=== PATIENT | male | born 1990 | race Caucasian/White ===

== ENCOUNTER 2023-07-11 02:02 | Emergency (ER) | payer SELFPAY ==
[2023-07-11] VITALS (9 sets, daily range): BP systolic 97–132; BP diastolic 44–81; PULSE 71–98; RESP 12–22; TEMP 37; O2SAT 95–100; BMI 21.9
--- NOTE | 2023-07-11 02:08 | ECG_ITS ---
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 Measurements Intervals [place] Rate: 81 P: 38 NE: 111 QRS: 73 QRSD: 104 T: 73 QT: 380 QTc: 441 Interpretive Statements SINUS RHYTHM WITH SHORT NE INTERVAL POSSIBLE RIGHT VENTRICULAR CONDUCTION DELAY [RSR (QR) IN V1/V2] Compared to ECG 11/02/2017 15:37:32 Short NE interval now present T-wave abnormality no longer present Electronically Signed On 07-11-2023 9:27:52 CDT by Pieter Chen M.D. [id number]
--- NOTE | 2023-07-11 02:16 | XRR_ITS ---
PROCEDURE INFORMATION: Exam: XR Chest Exam date and time: 07/11/2023 2:17 AM Age: 33 years old Clinical indication: Chest pressure; Patient HX: C/O chest pain; Additional info: Cp TECHNIQUE: Imaging protocol: Radiologic exam of the chest. Views: 1 view. COMPARISON: CR XR chest 1V [id number] 09/18/2018 9:39 AM FINDINGS: Lungs: Unremarkable. No consolidation. Pleural spaces: Unremarkable. No pleural effusion. No pneumothorax. Heart/Mediastinum: Unremarkable. No cardiomegaly. Bones/joints: Degenerative/osteolytic changes of the distal right clavicle. XR/XR chest 1V portable [id number] IMPRESSION: 1. No acute cardiopulmonary findings. 2. Right distal clavicle osteolysis.
[2023-07-11 02:25] LABS: Basophils % 0.1 %; Eosinophils % 0.1 %; Hematocrit 43.9 % (37-53); Lymphocytes # 0.5 10^3/uL (0.8-4.8); Lymphocytes % 5.9 %; Mean Corpuscular HGB Conc 33.9 g/dL (30-55); Mean Corpuscular Volume 94.2 fl (82-101); Mean Platelet Volume 11.3 fL (7.4-10.4); Monocytes # 0.5 10^3/uL (0.2-0.9); Monocytes % 5.3 %; Neutrophils # 7.77 10^3/uL (1.8-7.7); Neutrophils % 88.4 %; Nucleated Red Blood Cells % 0 %; Platelet Count 255 10^3/cmm (157-399); Red Blood Count 4.66 10^6/uL (3.85-5.65); Red Cell Distribution Width 11.9 % (12.1-15.1)
[2023-07-11] MEDS: sodium chloride 0.9% 1,000 ML 999 ML IV (02:27)
[2023-07-11 02:39] LABS: Troponin(5th) Baseline 10 ng/L (0-15)
[2023-07-11 02:41] LABS: Anion Gap 13.6 (5-19); Blood Urea Nitrogen 13 mg/dL (6-20); Calcium 9.5 mg/dL (8.5-10.5); Carbon Dioxide 31 mmol/L (22-29); Chloride 101 mmol/L (98-107); Creatinine Clr Calc Pharmacy 109.4394; Glomerular Filtration Rate 98.4 mL/min (90-130); Glucose 93 mg/dL (65-115); Osmolality Calculated 292 mOsm/kg (285-295); Potassium 4.6 mmol/L (3.5-5.1); Sodium 141 mmol/L (136-145)
--- NOTE | 2023-07-11 04:20 | W.ED.OVERDOS ---
Documented by User: Grzegorz Scott DO 07/11/23 06:08 HPI - Overdose General: Chief Complaint: Overdose Stated Complaint: OD 4hrs ago narcan already lethargic chest pain Time Seen by Provider: 07/11/23 02:07 History of Present Illness: 33-year-old male brought in because of concerns for an overdose and he might stop breathing EMS was called to the patient approximately 4 hours prior to arrival where he received Narcan. At some point it is not clear that patient supposedly got CPR from the girlfriend. He comes in today just because he is concerned about stopping breathing. He also admits to methamphetamine and marijuana use. Review of Systems Const: Denies: fever(s) or chills Card: Reports: chest pain Resp: Denies: productive cough or non-productive cough GI: Denies: abdominal pain, nausea or vomiting Physical Exam Const: GENERAL APPEARANCE: disheveled and other (Obviously intoxicated, smells of marijuana); not in distress Resp: COMMON NORMALS: clear to auscultation bilaterally EFFORT & INSPECTION: Yes able to speak in complete sentences, No respiratory distress and No uses accessory muscles AUSCULTATION: clear to auscultation bilaterally Cardio: COMMON NORMALS: regular rate and regular rhythm RATE: regular rate RHYTHM: regular rhythm GI: COMMON NORMALS: Soft to palpation and non-tender PALPATION: Yes Soft to palpation Extremity: COMMON NORMALS: normal to inspection and full ROM Psych: APPEARANCE: Yes unkempt SPEECH: Yes slow Skin: OTHER: Multiple tattoos Course Vital Signs: Vital signs: Vital Signs Temperature 98.6 F 07/11/23 02:04 Pulse Rate 72 07/11/23 06:30 Respiratory Rate 12 07/11/23 06:30 Blood Pressure 105/56 07/11/23 06:30 Pulse Oximetry 98 07/11/23 06:00 Oxygen Delivery Me thod Room Air 07/11/23 06:00 MDM - Overdose Medical Decision Making pt resting and stable throughout stay, pt cared turned over at shift change with uds pending. Lab Data 07/11/23 02:16 07/11/23 02:16 Radiology Impressions Chest X-Ray 07/11/23 02:16 IMPRESSION: 1. No acute cardiopulmonary findings. 2. Right distal clavicle osteolysis. Laboratory Results WBC 8.80 10^3/uL (3.29-11.43) 07/11/23 02:16 RBC 4.66 10^6/uL (3.85-5.65) 07/11/23 02:16 Hgb 14.90 g/dL (11.27-16.99) 07/11/23 02:16 Hct 43.9 % (37-53) 07/11/23 02:16 MCV 94.2 fl (82-101) 07/11/23 02:16 MCH 32.0 pg (27-33) 07/11/23 02:16 MCHC 33.9 g/dL (30-55) 07/11/23 02:16 RDW 11.9 % (12.1-15.1) L 07/11/23 02:16 Plt Count 255 10^3/cmm (157-399) 07/11/23 02:16 MPV 11.3 fL (7.4-10.4) H 07/11/23 02:16 Neut % (Auto) 88.4 % 07/11/23 02:16 Lymph % (Auto) 5.9 % 07/11/23 02:16 [place] % (Auto) 5.3 % 07/11/23 02:16 Eos % (Auto) 0.1 % 07/11/23 02:16 Baso % (Auto) 0.1 % 07/11/23 02:16 Neut # (Auto) 7.77 10^3/uL (1.8-7.7) H 07/11/23 02:16 Lymph # (Auto) 0.5 10^3/uL (0.8-4.8) L 07/11/23 02:16 [place] # (Auto) 0.5 10^3/uL (0.2-0.9) 07/11/23 02:16 Eos # (Auto) 0.0 10^3/uL (0.0-0.8) 07/11/23 02:16 Baso # (Auto) 0.0 10^3/uL (0.0-0.1) 07/11/23 02:16 Nucleated RBC % (auto) 0 % 07/11/23 02:16 Nucleated RBCs # 0.0 /100WBC 07/11/23 02:16 Sodium 141 mmol/L (136-145) 07/11/23 02:16 Potassium 4.6 mmol/L (3.5-5.1) 07/11/23 02:16 Chloride 101 mmol/L (98-107) 07/11/23 02:16 Carbon Dioxide 31 mmol/L (22-29) H 07/11/23 02:16 Anion Gap 13.6 (5-19) 07/11/23 02:16 BUN 13 mg/dL (6-20) 07/11/23 02:16 Creatinine 0.9 mg/dL (0.7-1.2) 07/11/23 02:16 GFR Calculation 98.4 mL/min (90-130) 07/11/23 02:16 Glucose 93 mg/dL (65-115) 07/11/23 02:16 Calculated Osmolality 292 mOsm/kg (285-295) 07/11/23 02:16 Calcium 9.5 mg/dL (8.5-10.5) 07/11/23 02:16 Troponin T Baseline 10 ng/L (0-15) 07/11/23 02:16 No radiology studies performed this visit EKG Data EKG 1: I personally reviewed and interpreted this EKG as follows: EKG interpretation date: 07/11/23 EKG interpretation time: 02:09 Interpretation: Sinus rhythm, ventricular rate 81, GA 111, no acute ST changes or elevation noted. Discharge Plan Discharge Patient Disposition: Home Clinical Impression: Drug overdose, Polysubstance abuse Condition: Stable Prescriptions: New Narcan 4 mg/actuation spray,non-aerosol 4 mg intranasal Q2M PRN (Reason: opioid overdose) Qty: 2 0RF Rx Instructions: spray 1 dose into ONE nostril; alternate nostrils w each dose until help arrives Discharge Orders: Discharge ED (Routine); Ordered 07/11/23 Ordered By: Flex Rose Patient Instructions: Narcotic Safety (ED), Polysubstance Use Disorder (ED), Narcotic Use Disorder (ED), Opioid Safety, Pain Management Activity Restrictions/Additional Instructions: Thank you for choosing [facility] for your healthcare needs today. It is very important that you follow up as instructed or that you return to the Emergency Department should you have concerns or if your condition changes or worsens in any way. You were seen today after a overdose of recreational use of narcotics. Strongly recommend not using narcotics that have not been prescribed to you. Narcotics overdoses and out of hospital settings have frequently resulted in respiratory arrest and . You were given a prescription for Narcan nasal spray to use in the event of any subsequent narcotics overdoses. Strongly recommend that you follow-up with behavioral health clinic or at [facility] to help with substance abuse disorders. Sign Out Sign Out Data: Patient Sign Out occurred on 07/11/23 at 06:20. Patient's care was discussed, and care was transferred from Grzegorz Scott DO to Flex Rose DO. Coding Level of Care Code ED Keyboard Teacher for Chg Fwd Documented by User: Flex Rose DO 07/11/23 08:20 HPI - Overdose General: Chief Complaint: Overdose Stated Complaint: OD 4hrs ago narcan already lethargic chest pain Time Seen by Provider: 07/11/23 02:07 Course Vital Signs: Vital signs: Vital Signs Temperature 98.6 F 07/11/23 02:04 Pulse Rate 72 07/11/23 06:30 Respiratory Rate 12 07/11/23 06:30 Blood Pressure 105/56 07/11/23 06:30 Pulse Oximetry 98 07/11/23 06:00 Oxygen Delivery Me thod Room Air 07/11/23 06:00 MDM - Overdose Medical Decision Making pt resting and stable throughout stay, pt cared turned over at shift change with uds pending. Patient now awake and alert with no specific complaints is adamant about leaving. He refuses to provide a urine sample. He is able to repeat his history to me. Repeat exam chest clear heart regular. Chart reviewed. Patient's recollection of history matches what he had told Dr. Bennett and what Dr. Scott has on the chart. We had been monitoring him for a time for the medications to wear off. He denies any intentional overdose. His recreational use of medications. He had admitted to the use of narcotics marijuana and methamphetamine to Dr. Scott. Medical Records I reviewed the patient's medical records. Lab Data I reviewed the patient's lab results. 07/11/23 02:16 07/11/23 02:16 Radiology Impressions Chest X-Ray 07/11/23 02:16 IMPRESSION: 1. No acute cardiopulmonary findings. 2. Right distal clavicle osteolysis. Laboratory Results WBC 8.80 10^3/uL (3.29-11.43) 07/11/23 02:16 RBC 4.66 10^6/uL (3.85-5.65) 07/11/23 02:16 Hgb 14.90 g/dL (11.27-16.99) 07/11/23 02:16 Hct 43.9 % (37-53) 07/11/23 02:16 MCV 94.2 fl (82-101) 07/11/23 02:16 MCH 32.0 pg (27-33) 07/11/23 02:16 MCHC 33.9 g/dL (30-55) 07/11/23 02:16 RDW 11.9 % (12.1-15.1) L 07/11/23 02:16 Plt Count 255 10^3/cmm (157-399) 07/11/23 02:16 MPV 11.3 fL (7.4-10.4) H 07/11/23 02:16 Neut % (Auto) 88.4 % 07/11/23 02:16 Lymph % (Auto) 5.9 % 07/11/23 02:16 [place] % (Auto) 5.3 % 07/11/23 02:16 Eos % (Auto) 0.1 % 07/11/23 02:16 Baso % (Auto) 0.1 % 07/11/23 02:16 Neut # (Auto) 7.77 10^3/uL (1.8-7.7) H 07/11/23 02:16 Lymph # (Auto) 0.5 10^3/uL (0.8-4.8) L 07/11/23 02:16 [place] # (Auto) 0.5 10^3/uL (0.2-0.9) 07/11/23 02:16 Eos # (Auto) 0.0 10^3/uL (0.0-0.8) 07/11/23 02:16 Baso # (Auto) 0.0 10^3/uL (0.0-0.1) 07/11/23 02:16 Nucleated RBC % (auto) 0 % 07/11/23 02:16 Nucleated RBCs # 0.0 /100WBC 07/11/23 02:16 Sodium 141 mmol/L (136-145) 07/11/23 02:16 Potassium 4.6 mmol/L (3.5-5.1) 07/11/23 02:16 Chloride 101 mmol/L (98-107) 07/11/23 02:16 Carbon Dioxide 31 mmol/L (22-29) H 07/11/23 02:16 Anion Gap 13.6 (5-19) 07/11/23 02:16 BUN 13 mg/dL (6-20) 07/11/23 02:16 Creatinine 0.9 mg/dL (0.7-1.2) 07/11/23 02:16 GFR Calculation 98.4 mL/min (90-130) 07/11/23 02:16 Glucose 93 mg/dL (65-115) 07/11/23 02:16 Calculated Osmolality 292 mOsm/kg (285-295) 07/11/23 02:16 Calcium 9.5 mg/dL (8.5-10.5) 07/11/23 02:16 Troponin T Baseline 10 ng/L (0-15) 07/11/23 02:16 Discharge Plan Discharge Patient Disposition: Home Clinical Impression: Drug overdose, Polysubstance abuse Condition: Stable Prescriptions: New Narcan 4 mg/actuation spray,non-aerosol 4 mg intranasal Q2M PRN (Reason: opioid overdose) Qty: 2 0RF Rx Instructions: spray 1 dose into ONE nostril; alternate nostrils w each dose until help arrives Discharge Orders: Discharge ED (Routine); Ordered 07/11/23 Ordered By: Flex Rose Patient Instructions: Narcotic Safety (ED), Polysubstance Use Disorder (ED), Narcotic Use Disorder (ED), Opioid Safety, Pain Management Activity Restrictions/Additional Instructions: Thank you for choosing [facility] for your healthcare needs today. It is very important that you follow up as instructed or that you return to the Emergency Department should you have concerns or if your condition changes or worsens in any way. You were seen today after a overdose of recreational use of narcotics. Strongly recommend not using narcotics that have not been prescribed to you. Narcotics overdoses and out of hospital settings have frequently resulted in respiratory arrest and . You were given a prescription for Narcan nasal spray to use in the event of any subsequent narcotics overdoses. Strongly recommend that you follow-up with behavioral health clinic or at [facility] to help with substance abuse disorders. Sign Out Sign Out Data: Patient Sign Out occurred on 07/11/23 at 06:20. Patient's care was discussed, and care was transferred from Grzegorz Scott DO to Flex Rose DO. Coding Level of Care Code ED Keyboard Teacher for Smai Doherty
== END 2023-07-11 08:16 | disposition home or self-care (01) ==
PROVIDERS: Student in an Organized Health Care Education/Training Program; Emergency Provider Family Medicine
DX: T43.621A Poisoning by amphetamines, accidental (unintentional), initial encounter (principal); F19.10 Other psychoactive substance abuse, uncomplicated
CPT/HCPCS: 71045; 80048; 84484; 85025; 93005; 96360; 96361; 99285; J7030

== ENCOUNTER 2023-07-27 12:00 | Emergency (ER) | payer SELFPAY ==
[2023-07-27] MEDS: sodium chloride 0.9% 1,000 ML 999 ML IV (12:17)
--- NOTE | 2023-07-27 12:21 | ECG_ITS ---
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 Measurements Intervals [place] Rate: 64 P: 43 [place]: 114 QRS: 71 QRSD: 110 T: 75 QT: 421 QTc: 437 Interpretive Statements SINUS RHYTHM WITH SINUS ARRHYTHMIA WITH SHORT OK INTERVAL Compared to ECG 07/11/2023 02:08:22 No significant changes Electronically Signed On 07-27-2023 12:53:17 CDT by Reynaldo Phan M.D. [id number]
--- NOTE | 2023-07-27 12:22 | ED_ITS ---
HPI - Overdose 2 General: Chief Complaint: Overdose Stated Complaint: swallowed drugs Time Seen by Provider: 07/27/23 12:03 History of Present Illness: 33-year-old man who presents to the [facility] room by police. Apparently he was being arrested and a routine traffic stop and reported to police that he took 200 mg of fentanyl. He tells me that he has coded twice before with overdoses. He says it happens very fast. The time he is still alert but is started become a little bit more somnolent. He reports no chest pain. He has no focal motor deficits and walked into the emergency room. Initially he was in handcuffs. Review of Systems 2 Narrative: Constitutional symptoms: Negative except as documented in HPI. Skin symptoms: Negative except as documented in HPI. Eye symptoms: Negative except as documented in HPI. ENMT symptoms: Negative except as documented in HPI. Respiratory symptoms: Negative except as documented in HPI. Cardiovascular symptoms: Negative except as documented in HPI. Gastrointestinal symptoms: Negative except as documented in HPI. Genitourinary symptoms: Negative except as documented in HPI. Musculoskeletal symptoms: Negative except as documented in HPI. Neurologic symptoms: Negative except as documented in HPI. Psychiatric symptoms: Negative except as documented in HPI. Endocrine symptoms: Negative except as documented in HPI. Physical Exam 2 Narrative: EXAM NARRATIVE: General: Alert but beginning to become somnolent, no acute distress. Skin: Warm, dry. Head: Normocephalic, atraumatic. Neck: Supple, trachea midline. Eye: Extraocular movements are intact. Ears, nose, mouth and throat: mucosa moist. Cardiovascular: Regular, Normal peripheral perfusion. Respiratory: Lungs are clear to auscultation, respirations are non-labored, breath sounds are equal, Symmetrical chest wall expansion. Gastrointestinal: Soft, Nontender, Non distended, Normal bowel sounds. Musculoskeletal: Normal ROM, no deformity. Neurological: Alert and oriented, No focal neurological deficit observed. Psychiatric: Cooperative, appropriate mood & affect. MDM - Overdose Medical Decision Making Medical decision making: Differential diagnosis including but not limited to and based on the above HPI, review of systems and physical exam: Seems to be a fairly obvious overdose. Basic lab work is being ordered and a drug screen. Concern for respiratory depression. Narcan given immediately. Orders placed to evaluate differential diagnosis based on the above differential, HPI and physical exam Consultation: Poison control was consulted. I do agree with the initial dose of Narcan and if patient becomes somnolent again later and symptoms persist he may need a Narcan drip. They recommend observation for 2 hours after last dose of Narcan with no symptoms. EK:42 PM. Rate 64. Normal sinus rhythm, No ST-T changes, no ectopy, normal MS & QRS intervals, This was reviewed and interpreted by myself the ER physician at 12:45 Lab Review: Laboratory results were reviewed and interpreted by myself the emergency room physician. Lab work is fairly unremarkable. BUN and creatinine are normal. No leukocytosis. No elevation in his LFTs. Urine is positive for opiates, methamphetamine and marijuana. I reviewed the patient's medical record. Reexamination: Patient now remains awake without difficulty. He is a bit tired but he says he has been up for some time and has had a long day. No focal motor deficits. No increased work of breathing. He is maintaining his airway. He request that he received no more Narcan. Patient continues to deny any suicidal or homicidal ideation. He took the fentanyl when he was stopped to hide it from the police. Discharge vital signs are normal. Heart rate of 75. Blood pressure is 127/62. Pulse ox is 100% on room air. Assessment and plan: Intentional fentanyl overdose Dehydration -Normal saline bolus and two 2 mg doses of Narcan. -Poison control recommended the larger dose of Narcan for fentanyl overdoses. - Discharged home - Discussed plan with patient. Answered any questions. - Evaluation and treatment of this problem were appropriate in the emergency setting. Lab Data 07/27/23 12:30 07/27/23 12:30 Laboratory Results WBC 7.18 10^3/uL (3.29-11.43) 07/27/23 12:30 RBC 4.58 10^6/uL (3.85-5.65) 07/27/23 12:30 Hgb 14.30 g/dL (11.27-16.99) 07/27/23 12:30 Hct 42.6 % (37-53) 07/27/23 12:30 MCV 93.0 fl (82-101) 07/27/23 12:30 MCH 31.2 pg (27-33) 07/27/23 12:30 MCHC 33.6 g/dL (30-55) 07/27/23 12:30 RDW 12.1 % (12.1-15.1) 07/27/23 12:30 Plt Count 238 10^3/cmm (157-399) 07/27/23 12:30 MPV 11.3 fL (7.4-10.4) H 07/27/23 12:30 Neut % (Auto) 55.7 % 07/27/23 12:30 Lymph % (Auto) 29.7 % 07/27/23 12:30 [place] % (Auto) 10.7 % 07/27/23 12:30 Eos % (Auto) 3.2 % 07/27/23 12:30 Baso % (Auto) 0.3 % 07/27/23 12:30 Neut # (Auto) 4.00 10^3/uL (1.8-7.7) 07/27/23 12:30 Lymph # (Auto) 2.1 10^3/uL (0.8-4.8) 07/27/23 12:30 [place] # (Auto) 0.8 10^3/uL (0.2-0.9) 07/27/23 12:30 Eos # (Auto) 0.2 10^3/uL (0.0-0.8) 07/27/23 12:30 Baso # (Auto) 0.0 10^3/uL (0.0-0.1) 07/27/23 12:30 Nucleated RBC % (auto) 0 % 07/27/23 12:30 Nucleated RBCs # 0.0 /100WBC 07/27/23 12:30 Sodium 143 mmol/L (136-145) 07/27/23 12:30 Potassium 3.6 mmol/L (3.5-5.1) 07/27/23 12:30 Chloride 107 mmol/L (98-107) 07/27/23 12:30 Carbon Dioxide 25 mmol/L (22-29) 07/27/23 12:30 Anion Gap 14.6 (5-19) 07/27/23 12:30 BUN 14 mg/dL (6-20) 07/27/23 12:30 Creatinine 0.8 mg/dL (0.7-1.2) 07/27/23 12:30 GFR Calculation 112.8 mL/min (90-130) 07/27/23 12:30 Glucose 99 mg/dL (65-115) 07/27/23 12:30 Calculated Osmolality 297 mOsm/kg (285-295) H 07/27/23 12:30 Calcium 9.3 mg/dL (8.5-10.5) 07/27/23 12:30 Total Bilirubin 0.3 mg/dL (0.15-1.2) 07/27/23 12:30 AST 59 U/L (0-40) H 07/27/23 12:30 ALT 54 U/L (0-41) H 07/27/23 12:30 Alkaline Phosphatase 70 U/L (40-130) 07/27/23 12:30 Total Protein 7.4 g/dL (6.6-8.7) 07/27/23 12:30 Albumin 4.3 g/dL (3.5-5.2) 07/27/23 12:30 Globulin 3.1 g/dL (1.3-4.6) 07/27/23 12:30 Urine Opiates Screen Positive ng/mL (Negative) H 07/27/23 13:36 Ur Barbiturates Screen Negative ng/mL (Negative) 07/27/23 13:36 Ur Phencyclidine Scrn Negative ng/mL (Negative) 07/27/23 13:36 Ur Amphetamines Screen Positive ng/mL (Negative) H 07/27/23 13:36 U Benzodiazepines Scrn Negative ng/mL (Negative) 07/27/23 13:36 Urine Cocaine Screen Negative ng/mL (Negative) 07/27/23 13:36 U Marijuana (THC) Screen Positive ng/mL (Negative) H 07/27/23 13:36 No radiology studies performed this visit Discharge Plan Discharge Patient Disposition: Home Clinical Impression: Fentanyl poisoning Qualifiers: Encounter type: initial encounter Injury intent: undetermined intent Qualified Code(s): T40.414A - Poisoning by fentanyl or fentanyl analogs, undetermined, initial encounter Condition: Stable Prescriptions: No Action naloxone [Narcan] 4 mg/actuation spray,non-aerosol 4 mg intranasal Q2M PRN (Reason: opioid overdose) Qty: 2 0RF Rx Instructions: spray 1 dose into ONE nostril; alternate nostrils w each dose until help arrives Discharge Orders: Discharge ED (Routine); Ordered 06/17/24 Ordered By: Rosa Bruno Discharge Diet: Usual diet Discharge Activity: Increase activity as tolerated Patient Instructions: Opioid Safety, Pain Management Activity Restrictions/Additional Instructions: Thank you for choosing [facility] for your healthcare needs today. Please realize this is an emergency room and that we are providing you with a medical screening exam and this may not be complete and all inclusive of all the testing and or work up that you may need to determine your ailment or severity of your illness. You have been screened and evaluated and felt safe for discharge. Health conditions do change or evolve sometimes and as such it is important that you follow up with your Primary Doctor to be re checked, 3-5 days is a general good time frame for follow up. You are always welcome to return to the ED for re assessment if your symptoms are worsening or you have new concerns Coding Level of Care Code ED Bottom Finisher for Sami Doherty
[2023-07-27] MEDS: ondansetron 2 mg/ML SDV 2 mL 8 MG IVP (12:25)
[2023-07-27 12:48] LABS: Basophils % 0.3 %; Eosinophils # 0.2 10^3/uL (0.0-0.8); Eosinophils % 3.2 %; Hematocrit 42.6 % (37-53); Lymphocytes # 2.1 10^3/uL (0.8-4.8); Lymphocytes % 29.7 %; Mean Corpuscular HGB Conc 33.6 g/dL (30-55); Mean Corpuscular Hemoglobin 31.2 pg (27-33); Mean Platelet Volume 11.3 fL (7.4-10.4); Monocytes # 0.8 10^3/uL (0.2-0.9); Monocytes % 10.7 %; Neutrophils % 55.7 %; Nucleated Red Blood Cells % 0 %; Platelet Count 238 10^3/cmm (157-399); Red Blood Count 4.58 10^6/uL (3.85-5.65); Red Cell Distribution Width 12.1 % (12.1-15.1); White Blood Count 7.18 10^3/uL (3.29-11.43)
[2023-07-27 13:07] LABS: Alanine Aminotransferase 54 U/L (0-41); Albumin Level 4.3 g/dL (3.5-5.2); Alkaline Phosphatase 70 U/L (40-130); Anion Gap 14.6 (5-19); Aspartate Amino Transferase 59 U/L (0-40); Blood Urea Nitrogen 14 mg/dL (6-20); Calcium 9.3 mg/dL (8.5-10.5); Carbon Dioxide 25 mmol/L (22-29); Chloride 107 mmol/L (98-107); Globulin 3.1 g/dL (1.3-4.6); Glomerular Filtration Rate 112.8 mL/min (90-130); Glucose 99 mg/dL (65-115); Osmolality Calculated 297 mOsm/kg (285-295); Potassium 3.6 mmol/L (3.5-5.1); Sodium 143 mmol/L (136-145); Total Bilirubin 0.3 mg/dL (0.15-1.2); Total Protein 7.4 g/dL (6.6-8.7)
[2023-07-27 13:11] LABS: Slide Review Slide Review Perform
[2023-07-27 13:58] LABS: Amphetamines Screen Urine Positive (Negative); Barbiturates Screen Urine Negative (Negative); Benzodiazepines Screen Urine Negative (Negative); Cocaine Screen Urine Negative (Negative); Opiate Screen Urine Positive (Negative); PCP Screen Urine Negative (Negative); THC Screen Urine Positive (Negative)
--- NOTE | 2023-07-27 14:10 | PC.PHAR ---
PT HAS NO OTHER CURRENT MEDICATIONS EXCEPT NARCAN FROM 07/11/23
[2023-07-27 15:15] VITALS: BP 127/62; PULSE 59; RESP 16; TEMP 36.8; O2SAT 100
== END 2023-07-27 15:16 | disposition home or self-care (01) ==
PROVIDERS: Emergency Provider Emergency Medicine
DX: T40.412A Poisoning by fentanyl or fentanyl analogs, intentional self-harm, initial encounter (principal)
CPT/HCPCS: 80053; 80306; 85025; 93005; 96374; 96375; 99284; 99291; J2310; J2405; J7030

== ENCOUNTER 2023-08-23 08:38 | Emergency (ER) | payer OTHER, SELFPAY ==
[2023-08-23 08:53] VITALS: BP 131/85; PULSE 79; TEMP 36.4; O2SAT 100
--- NOTE | 2023-08-23 09:04 | ED_ITS ---
HPI - Nausea/Vomiting/Diarrhea 2 General: Chief complaint: Nausea/Vomiting/Diarrhea Stated complaint: abd pain Time Seen by Provider: 08/23/23 08:53 Source: patient Mode of arrival: ambulatory Limitations: no limitations History of Present Illness: This patient presents to the emergency department accompanied by his significant other. He apparently has a regular fentanyl user. He states he also took an edible yesterday that was not commercially produced but from someone's home. He states these had nausea and some abdominal cramping since that time. He states his he is being using less fentanyl over the last 24 hours. He denies any vomiting or diarrhea. He denies any fevers or chills. He denies any skin lesions or abscesses etc. He denies fever or bad food exposure. His significant other is not ill. MD elicited complaint: nausea Associated nausea: Yes Associated symtoms: Reports nausea; Denies change in vision, chest pain, dysuria, headache(s), palpitations or syncope Review of Systems 2 Const: Denies: fever(s) or chills Eyes: Denies: change in vision ENMT: Denies: throat pain, odynophagia, nasal discharge or nasal congestion Card: Denies: chest pain, palpitations, irregular heart rhythm, syncope or pre-syncope Resp: Denies: dyspnea, productive cough or non-productive cough GI: Reports: nausea; Denies: vomiting, hematemesis, diarrhea or melena : Denies: flank pain, difficulty urinating, dysuria or urinary frequency Musc: Denies: neck pain, back pain, extremity pain or extremity swelling Skin/Breast: Denies: rash or pruritus Neuro: Denies: headache(s), numbness in extremities or weakness in extremities Physical Exam 2 Narrative: EXAM NARRATIVE: This patient is alert makes good eye contact. He is cooperative. Const: COMMON NORMALS: no acute distress and patient oriented x3 GENERAL APPEARANCE: cooperative HENMT: COMMON NORMALS: normocephalic; oral mucous membranes not moist HEAD & SCALP: normocephalic Eye: COMMON NORMALS: Equal, round and reactive pupils present, EOMs intact bilaterally and conjunctivae normal CONJUNCTIVA: Yes conjunctivae normal P UPIL: Yes Equal, round and reactive pupils present Neck/C-Spine: COMMON NORMALS: full ROM, no lymphadenopathy and no JVD Chest: COMMONS NORMALS: normal inspection of the chest Resp: COMMON NORMALS: normal respiratory effort, No retractions, No use of accessory muscles and clear to auscultation bilaterally AUSCULTATION: clear to auscultation bilaterally Cardio: COMMON NORMALS: no JVD, regular rate, regular rhythm, No murmurs present (Cardio) and Peripheral pulses 2+ throughout RATE: regular rate R HYTHM: regular rhythm PERIPHERAL PULSES: Peripheral pulses 2+ throughout GI: COMMON NORMALS: Normal to inspection, nondistended, normoactive bowel sounds present, Soft to palpation, non-tender and no masses PALPATION: Yes Soft to palpation Back/Pelvis: COMMON NORMALS: thoracic and lumbar spine normal to inspection, no thoracic nor lumbar tenderness and thoraco-lumbar ROM normal Extremity: COMMON NORMALS: normal to inspection, full ROM and no calf tenderness Neuro: COMMON NORMALS: patient oriented x3 Psych: COMMON NORMALS: mental status grossly normal Skin: NARRATIVE SKIN EXAM: Multiple skin tattoos multiple puncture wounds along veins but no erythema, abscess etc. Course 2 Reevaluation(s): Reevaluation #1: Patient remained stable. Discussed current findings and their implications with both patient and significant other. No evidence at this time of acute withdrawal or other concerning symptoms that need further resuscitation, observation, and admission. Patient his significant other has Narcan and we have congratulated them both and encouraged them on their can journey to stop using opiates. Time: 10:57 Vital Signs: Vital signs: Vital Signs Temperature 97.6 F 08/23/23 08:53 Pulse Rate 77 08/23/23 10:30 Respiratory Rate 16 08/23/23 10:30 Blood Pressure 127/69 08/23/23 10:30 Pulse Oximetry 97 08/23/23 10:30 Oxygen Delivery Me thod Room Air 08/23/23 09:47 MDM - Nausea/Vomiting/Diarrhea Medical Decision Making Patient presented as noted in the HPI. Chronic opiate user last use yesterday. Concerned about some abdominal cramping. He also ingested a homemade edible yesterday which she has not done previously. No other constitutional symptoms. Clinical examination is reassuring without any evidence of surgical abdomen etc. Laboratories were obtained to ensure no evidence of acute disease process at this time. Laboratories were reassuring. He did have antibody antibodies to hepatitis C which is known. He had a minimal elevation in his transaminases which are less than previously recorded in our system. He received antiemetic as well as IV fluids and clinically stable without any stigmata that required further observation and/or admission. We reviewed all laboratory tests their implications with both he and spouse. We also discussed home care. Stable at this time to be discharged. Lab Data I reviewed the patient's lab results. 08/23/23 09:09 08/23/23 09:09 Laboratory Results WBC 4.85 10^3/uL (3.29-11.43) 08/23/23 09:09 RBC 4.54 10^6/uL (3.85-5.65) 08/23/23 09:09 Hgb 14.10 g/dL (11.27-16.99) 08/23/23 09:09 Hct 42.9 % (37-53) 08/23/23 09:09 MCV 94.5 fl (82-101) 08/23/23 09:09 MCH 31.1 pg (27-33) 08/23/23 09:09 MCHC 32.9 g/dL (30-55) 08/23/23 09:09 RDW 11.8 % (12.1-15.1) L 08/23/23 09:09 Plt Count 228 10^3/cmm (157-399) 08/23/23 09:09 MPV 10.7 fL (7.4-10.4) H 08/23/23 09:09 Neut % (Auto) 52.4 % 08/23/23 09:09 Lymph % (Auto) 27.0 % 08/23/23 09:09 Bulloch % (Auto) 15.5 % 08/23/23 09:09 Eos % (Auto) 4.5 % 08/23/23 09:09 Baso % (Auto) 0.4 % 08/23/23 09:09 Neut # (Auto) 2.54 10^3/uL (1.8-7.7) 08/23/23 09:09 Lymph # (Auto) 1.3 10^3/uL (0.8-4.8) 08/23/23 09:09 Bulloch # (Auto) 0.8 10^3/uL (0.2-0.9) 08/23/23 09:09 Eos # (Auto) 0.2 10^3/uL (0.0-0.8) 08/23/23 09:09 Baso # (Auto) 0.0 10^3/uL (0.0-0.1) 08/23/23 09:09 Nucleated RBC % (auto) 0 % 08/23/23 09:09 Nucleated RBCs # 0.0 /100WBC 08/23/23 09:09 Sodium 140 mmol/L (136-145) 08/23/23 09:09 Potassium 4.0 mmol/L (3.5-5.1) 08/23/23 09:09 Chloride 100 mmol/L (98-107) 08/23/23 09:09 Carbon Dioxide 29 mmol/L (22-29) 08/23/23 09:09 Anion Gap 15.0 (5-19) 08/23/23 09:09 BUN 16 mg/dL (6-20) 08/23/23 09:09 Creatinine 0.8 mg/dL (0.7-1.2) 08/23/23 09:09 GFR Calculation 112.8 mL/min (90-130) 08/23/23 09:09 Glucose 86 mg/dL (65-115) 08/23/23 09:09 Calculated Osmolality 290 mOsm/kg (285-295) 08/23/23 09:09 Calcium 8.6 mg/dL (8.5-10.5) 08/23/23 09:09 Total Bilirubin 0.4 mg/dL (0.15-1.2) 08/23/23 09:09 AST 41 U/L (0-40) H 08/23/23 09:09 ALT 50 U/L (0-41) H 08/23/23 09:09 Alkaline Phosphatase 77 U/L (40-130) 08/23/23 09:09 Total Protein 6.8 g/dL (6.6-8.7) 08/23/23 09:09 Albumin 3.7 g/dL (3.5-5.2) 08/23/23 09:09 Globulin 3.1 g/dL (1.3-4.6) 08/23/23 09:09 Lipase 54 U/L (13-60) 08/23/23 09:09 Hepatitis A IgM Ab Non-reactive (Nonreactive) 08/23/23 09:09 Hep Bs Antigen Non-reactive (Nonreactive) 08/23/23 09:09 Hep B Core IgM Ab Non-reactive (Nonreactive) 08/23/23 09:09 Hepatitis C Antibody Reactive (Nonreactive) H 08/23/23 09:09 No radiology studies performed this visit Discharge Plan Discharge Patient Disposition: Home Clinical Impression: Drug-induced nausea and vomiting, Hepatitis C antibody positive in blood, Opiate use Condition: Stable Prescriptions: No Action naloxone [Narcan] 4 mg/actuation spray,non-aerosol 4 mg intranasal Q2M PRN (Reason: opioid overdose) Qty: 2 0RF Rx Instructions: spray 1 dose into ONE nostril; alternate nostrils w each dose until help arrives Discharge Orders: Discharge ED (Routine); Ordered 08/23/23 Ordered By: Felipe Mejia Discharge Diet: Advance as tolerated Discharge Activity: Increase activity as tolerated Patient Instructions: Opioid Safety, Pain Management Activity Restrictions/Additional Instructions: As we discussed your hepatitis C antibody is positive. This has to be followed periodically by your primary care physician. We also recommend MiraLAX 1 to 2 packets daily to help reduce constipation risk. Purchase [id number] Pepcid AC 10 mg and take 1 of those twice daily for the next week to help reduce stomach irritation. Continue all on your efforts to reduce and/or stop your opiate use. If you have any new or worsening symptoms you are welcome to return to the emergency department for reevaluation. Coding Level of Care Code ED Hematologist Oncologist for Sami Doherty
[2023-08-23] MEDS: ondansetron 2 mg/ML SDV 2 mL 4 MG IVP (09:13)
[2023-08-23] MEDS: lactated ringers 1,000 ML 999 ML IV (09:15)
[2023-08-23 09:16] LABS: Basophils % 0.4 %; Eosinophils # 0.2 10^3/uL (0.0-0.8); Eosinophils % 4.5 %; Hematocrit 42.9 % (37-53); Lymphocytes # 1.3 10^3/uL (0.8-4.8); Mean Corpuscular HGB Conc 32.9 g/dL (30-55); Mean Corpuscular Hemoglobin 31.1 pg (27-33); Mean Corpuscular Volume 94.5 fl (82-101); Mean Platelet Volume 10.7 fL (7.4-10.4); Monocytes # 0.8 10^3/uL (0.2-0.9); Monocytes % 15.5 %; Neutrophils # 2.54 10^3/uL (1.8-7.7); Neutrophils % 52.4 %; Nucleated Red Blood Cells % 0 %; Platelet Count 228 10^3/cmm (157-399); Red Blood Count 4.54 10^6/uL (3.85-5.65); Red Cell Distribution Width 11.8 % (12.1-15.1); White Blood Count 4.85 10^3/uL (3.29-11.43)
[2023-08-23 09:36] LABS: Alanine Aminotransferase 50 U/L (0-41); Albumin Level 3.7 g/dL (3.5-5.2); Alkaline Phosphatase 77 U/L (40-130); Aspartate Amino Transferase 41 U/L (0-40); Blood Urea Nitrogen 16 mg/dL (6-20); Calcium 8.6 mg/dL (8.5-10.5); Carbon Dioxide 29 mmol/L (22-29); Chloride 100 mmol/L (98-107); Creatinine Clr Calc Pharmacy 118.9992; Globulin 3.1 g/dL (1.3-4.6); Glomerular Filtration Rate 112.8 mL/min (90-130); Glucose 86 mg/dL (65-115); Lipase 54 U/L (13-60); Osmolality Calculated 290 mOsm/kg (285-295); Sodium 140 mmol/L (136-145); Total Bilirubin 0.4 mg/dL (0.15-1.2); Total Protein 6.8 g/dL (6.6-8.7)
[2023-08-23 09:47] VITALS: BP 126/74; PULSE 92; RESP 16; O2SAT 100
[2023-08-23 09:51] LABS: Hepatitis A Antibody IgM Non-Reactive (Nonreactive); Hepatitis B Core IgM Non-Reactive (Nonreactive); Hepatitis B Surface Antigen Non-Reactive (Nonreactive); Hepatitis C Virus Antibody Reactive (Nonreactive)
[2023-08-23 10:27] LABS: Slide Review Slide Review Perform
[2023-08-23 10:30] VITALS: BP 127/69; PULSE 77; RESP 16; O2SAT 97
--- NOTE | 2023-08-23 10:46 | PC.NURSE ---
Pt resting in bed with eyes closed. Normal respirations noted. Pts girlfriend at bed side and service dog on bed with patient. Pt opens eyes when spoke to.
[2023-08-23 11:00] VITALS: BP 119/75; O2SAT 95
[2023-08-25 15:49] LABS: HEP C RNA Viral Load Quant 6.78 Log IU/mL (NOT DETECTED); HEP C RNA Viral Load Quant 6000000 IU/mL (NOT DETECTED)
== END 2023-08-23 11:06 | disposition home or self-care (01) ==
PROVIDERS: Emergency Provider Emergency Medicine
DX: R11.2 Nausea with vomiting, unspecified (principal); F11.90 Opioid use, unspecified, uncomplicated; B19.20 Unspecified viral hepatitis C without hepatic coma
CPT/HCPCS: 80053; 80074; 83690; 85025; 87522; 96361; 96374; 99284; J2405; J7120